=== PATIENT | female | born 1960 | race Caucasian/White ===

== ENCOUNTER 2025-08-24 07:01 | Day surgery (SDC) | payer OTHER, SELFPAY ==
--- OUTSIDE RECORDS SUMMARY | 2025-07-26 05:20 | XMS_ITS ---
Author Organization [facility] Address [address] [place] [address] Care Team Providers Care Application Administrator Name Role Phone Juan Burnett Primary Care Provider UnavailLeonardo Watts Jr Unavailable Allergies Allergen (clinical drug ingredient) Drug/Non Drug Allergy documented on EMR Reaction Allergy Type Onset Date Status rubbing alcohol (uncoded) Unknown Allergy Active REASON FOR VISIT Patient presents today for a screening colonoscopy Medications Medication SIG (Take, Route, Fr equency, Duration) Notes Start Date End Date Status Lovastatin 20 MG 1 tablet with the ev ening meal Orally Once a day; Duration: 30 day(s) 07/26/2025 Active Lisinopril 20 MG 1 tablet Orally Once a day; Duration: 30 day(s) 07/26/2025 Active Sertraline HCl 50 MG 1 tablet Orally Onc e a day; Duration: 30 day(s) 07/26/2025 Active Immunizations Vaccine Route Administration Date Status Comme nts Influenza Unknown 07/26/2025 Refused Social History Tobacco Use: Social History Observation Description Date Details (start date - stop date) Former Smoker NA - NA Tobacco Control (Standard) Question Answer Notes Tobacco use: Former smoker AUDIT-C (Standard) Question Answer Notes Did you have a drink containing alcohol in the p ast year? No Points 0 Interpretation Negative Vital Signs Temperature 96.9 degrees Fahrenheit 07/26/20 25 Blood pressure systolic 001 mm Hg 07/26/20 25 Blood pressure diastolic 01 mm Hg 025 Height 63 in 07/26/2025 Weight 153.4 lbs 07/26/2025 BMI 27.17 kg/m2 07/26/2025 Encounters Encounter Location Date Provider Diagnosis [facility] [address] [place] [address] 07/26/2025 Leonardo Lockhart Jr Encounter for screening for malignant neoplasm of colon Z12.11 and History of adenomatous polyp of colon Z86.0101 Assessments Encounter Date Diagnosis (ICD Code) Assessment Notes Treatment Notes Treatment Clinical Notes Section Notes 07/26/2025 Encounter for screening for malignant neoplasm of colon (ICD-10 - Z12.11) 07/26/2025 History of adenomatous polyp of colon (ICD-10 - Z86.0101) Plan Of Treatment Future Test Test Name Order Date COLONOSCOPY 07/26/2025 Next Appt Details Provider Name:Leonardo barnett Jr, 08/24/2025 08:20:00 AM, [address] [place] [address] , [place], [place], [id number], Progress Notes * REFUGIO MARTINIOB: 1 (64 yo F)Acc No.[id number]:07/26/2025 Progress Notes Patient: ERA WOLF Provider: Alfonzo Lockhart MD :1960 A ge:64 Y S ex:Female Date:07/26/2025 Address:[address] [place], [place] [id number] Pcp:CICI Kenny Subjective: * Chief Complaints: * 1 . Patient presents today for a screening colonoscopy. * Medical History: t ype II diabetes, High blood pressure. * Surgical History: g all bladder 1993, hysterectomy 2011. * Family History: F ather: , diagnosed with HTN (hypertension). M other: alive, diagnosed with HTN (hypertension). No family history of liver cancer or colon cancer. * Social History: T obacco Use: T obacco Control (Standard) T obacco use: F ormer smoker. M iscellaneous: M arital status: single. 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 D rug/Alcohol: A ROGERIO-C (Standard) D id you have a drink containing alcohol in the past year? N o,?Points 0 , I nterpretation N egative. * Medications: T aking Sertraline HCl 50 MG Tablet 1 tablet Orally Once a day , Taking Lisinopril 20 MG Tablet 1 tablet Orally Once a day , Taking Lovastatin 20 MG Tablet 1 tablet with the evening meal Orally Once a day * Allergies: R ubbing Alcohol. Objective: * Vitals: W t:153.4lbs, Ht:63in, BMI:27.17Index, BP:001/01mm Hg, Temp:96.9, Ht-cm: 160.02, Wt-k.58. Assessment: * Assessment: 1. E ncounter for screening for malignant neoplasm of colon - Z12.11 2 . H istory of adenomatous polyp of colon - Z86.0101 Plan: * Treatment: 2.?History of adenomatous polyp of colon?Procedure: COLONOSCOPY (Ordered for 07/26/2025)* sched for 08/24/25 at 8:20 a mmacmiralax * Immunizations: Influenza (Not administered - Refused: Patient decision) * Preventive Medicine: Counseling: C are goal follow-up plan: A tyshawn Normal BMI Follow-up D ietary management education, guidance, and counseling, B OR management provided Y es. * * The named appointment provid er may or may not be the originator of this progress note, and it is not deemed complete until electronically signed by the appointment provider. Sign off status: Pending * Provider: Alfonzo Lockhart MD Date: 0 07/26/2025 Generated for Mason toro/Shyam/Christinitting on: 1 07:04 PM EDT
--- OUTSIDE RECORDS SUMMARY | 2025-08-17 19:04 | XMS_ITS | Clinical Summary ---
Author Organization [facility] Address [address] [place] [address] Care Team Providers Care Dobby Loom Fixer Name Role Phone Juan Starr Primary Care Provider [phone] Allergies Active Allergy Reactions Criticality Noted Date Comments Amoxicillin Rash 01/23/2024 Doxycycline Indigestion,Rash 01/23/2024 Ethyl Alcohol Syncope High 03/19/2024 Rubbing alcohol only Meperidine Nausea 03/19/2024 Medications cyanocobalamin (VITAMIN B12) 100 mcg tablet Take by mouth. Active lisinopriL (PRINIVIL,ZESTRI L) 20 mg tablet SMARTSI Tablet(s) By Mouth Daily 4 Active L.acid,casei,niyah nt,saliv/B.ani (PROBIOTIC FORMULA ORAL) Take by mouth. 4 Active Vitamin D3 25 mcg (1,000 unit) capsule Take 1 capsule by mouth once a day. Active Ozempic 1 mg/dose (4 mg/3 mL) pen injector SMARTSI Milligram(s) SUB-Q Once a Week 4 Active hydrOXYzine HCL (ATARAX) 25 mg tablet Take 25 mg by mouth. 4 Active rosuvastatin (CRESTOR) 40 mg tablet Take 1 tablet by mouth. 4 Active sertraline (ZOLOFT) 50 mg tablet Take 50 mg by mouth. 4 Active oxyquinoline-sod .lauryl sulfat (Trimo-Blount Jelly) 0.025-0.01 % gelIndications:C ervical stump prolapse,Pessary maintenance Insert 1 applicator into the vagina 2 times a week. 113.4 g 5 Active Active Problems Problem Noted Date Diagnosed Date Diabetes mellitus with neuropathy 09/21/2024 Thyroid nodule 09/21/2024 Pessary maintenance 06/24/2024 Arthritis of hand 06/24/2024 Impetigo 06/24/2024 Impingement syndrome of shoulder region 06/24/20 Neurofibroma 06/24/2024 Xanthomatosis 06/24/2024 Carpal tunnel syndrome 03/19/2024 Diabetes mellitus 03/19/2024 Elevation of level of transa minase and lactic acid dehydrogenase (LDH) 03/19/2024 Fatty liver 03/19/2024 Hypertension 03/19/2024 Insomnia 03/19/2024 Tubular adenoma 03/19/2024 Xanthelasma 03/19/2024 Current every day smoker 01/23/2024 Overweight for height 01/23/2024 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 Cystocele, midline 01/23/2024 Hearing loss 06/27/2015 Chronic sinusitis 06/20/2015 Deviated nasal septum 06/20/2015 Temporary high blood pressure 03/15/2015 Pulmonary nodule 03/15/2015 Intercostal myalgia 11/26/2014 Menopausal symptoms 09/20/2014 Psoriatic arthropathy 09/20/2014 Basal cell carcinoma of skin 05/07/2014 Papillary pigmented nevus 05/03/2014 Seborrhea 04/12/2014 Skin macule 04/12/2014 Hyperlipidemia 04/12/2014 Seborrheic keratosis 04/12/2014 Candidal intertrigo 04/12/2014 Xanthoma 04/12/2014 Obesity (BMI 30.0-34.9) 04/12/2014 Tick bite 03/29/2014 Fatigue 02/26/2014 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 Headache 01/22/2014 Tinnitus 01/22/2014 Acute upper respiratory infection 04/21/2013 Allergic rhinitis 04/14/2013 Resolved Problems Problem Noted Date Diagnosed Date Resolved Date Current smoker 06/24/2024 06/24/2024 Effusion of knee 06/24/2024 06/24/2024 Epidermoid cyst of skin 06/24/2024 08/2 05/2024 Foreign body granuloma of muscle 06/24/2024 06/24/2024 Intertriginous candidiasis 06/24/2024 0 06/24/2024 Low back pain 06/24/2024 06/24/2024 Skin lesion 06/24/2024 06/24/2024 Axillary abscess 03/19/2024 03/19/2024 Bronchiectasis 03/19/2024 03/19/2024 Impingement syndrome of left shoulder 03/19/2024 03/19/2024 Immunizations Immunization Administration Dates Next Due Td(Adult) Unspecified Formulation 08/12/2017 Tetanus and Diphtheria Toxoi ds, Adsorbed, Preservative Free, for Adult Use (5 Lf of Tetanus Toxoid and 2 Lf of Diphtheria Toxoid) 02/25/2006 Family History Medical History Relation Name Comments Other Father Paternal histor y of Chronic Obstructive Pulmonary Disease Other Mother Maternal histor y of Hypothyroidism Breast cancer Neg Hx Cervical cancer Neg Hx Colon cancer Neg Hx Endometrial cancer Neg Hx Osteoporosis Neg Hx Ovarian cancer Neg Hx Relation Name Status Comments Father Mother Social History Tobacco Use Types Packs/Day Years Used Date Smoking Tobacco: Former Cigarettes Passive Smoke Exposure: Past Smokeless Tobacco: Never Tobacco Cessation:Counseling Given: Not Answered Alcohol Use Standard Drinks/Week Comments Yes 0 (1 standard drink = 0.6 oz pur e alcohol) rarely Comments No Sex and Gender Information Value Date Recorded Sex Assigned at Female 01/17/2024 4:04 PM EDT Legal Sex Female 12:10 AM EDT Gender Identity Female 12/23/2024 10:21 AM EST Sexual Orientation Straight 12/23/2024 10 :21 AM EST Last Filed Vital Signs Vital Sign Reading Time Taken Comments Blood Pressure 134/86 03/25/2025 9:29 AM EDT Pulse 88 09/21/2024 8:58 AM EST Temperature 37.4 C (99.3 F) 04/21/2015 10:19 AM EDT Respiratory Rate 16 12/24/2024 10:31 AM EST Oxygen Saturation - - Inhaled Oxygen Concentration - - Weight 68.9 kg (152 lb) 03/25/2025 9:29 AM EDT Height 160 cm (5' 3 ) 03/25/2025 9:29 AM EDT Body Mass Index 26.93 03/25/2025 9:29 AM EDT Plan of Treatment Health Maintenance Due Date Last Done Comments Basic Metabolic Panel 1960 Cologuard 1961 Colon Cancer Screening 1960 Colonoscopy 1960 FOBT / Fit Test 1960 HIV Screening 1960 Hemoglobin A1C 1961 Hepatitis C Screening 1961 Sigmoidoscopy 1961 Ophthalmology Exam 1971 Urine Microalbumin 1971 Pneumococcal Vaccine: 50+ Years (1 of 2 - PCV) 1980 CT Lung Cancer Screening (Baseline) 2011 Zoster Vaccines (1 of 2) 2011 Mammogram 11/11/2014 11/11/2012 DTaP,Tdap,and Td Vaccines (1 - Tdap) 08/13/2017 08/12/2017, 02/25/2006 Alcohol/Substance Use Screening 10/28/2024 Depression Screening and Follow-Up 10/28/2024 Social Drivers of Health Annual Screening 10/28/2024 COVID-19 Vaccine (1 - 2024-2 6 season) 2025 Influenza Vaccine (#1) 2025 RSV Vaccine (60+ years old a nd patients) (1 - 1-dose 75+ series) 2036 Hepatitis B Vaccines Aged Out No long er eligible based on patient's age to complete this topic Procedures * Due to [place] [employer] law, this organization might not be sharing negative HIV tests. Procedure Name Priority Date/Time Associated Diagnosis Comments MAMMOGRAPHY Routine 11/11/2012 8:16 AM EST from Last 3 Months or Most Recently Relevant to Health Maintenance Results * Due to [facility] law, this organization might not be sharing negative HIV tests. * MAMMOGRAPHY (11/11/2012 8:16 AM EST) Mammogram Negative [facility] Anatomical Region Laterality Modality Other 11/11/2012 8:16 AM EST Joe Haynes MD HEALTH MAINTENANCE Final Result from Last 3 Months or Most Recently Relevant to Health Maintenance [place] [address] [place] [address] HSNO/FREE CARE Care Teams Dobby Loom Fixer Relationship Specialty Start Date End Date Juan Starr PA [address] [place] [address] PCP - General 03/25/25
--- OUTSIDE RECORDS SUMMARY | 2025-08-17 19:05 | XMS_ITS | Clinical Summary ---
Author Organization [facility] Address [address] [place] [address] Care Team Providers Care Sorter Pricer Name Role Phone Unavailable Primary Care Provider Unavailabl e Social History Tobacco Use Types Packs/Day Years Used Date Smoking Tobacco: Never Assessed Comments Unknown Sex and Gender Information Value Date Recorded Sex Assigned at Not on file Legal Sex Female 6:40 PM EDT Gender Identity Not on file Sexual Orientation Not on file Plan of Treatment Health Maintenance Due Date Last Done Comments Hepatitis C Screening 1961 Pap Smear 1977 DTaP/Tdap/Td (1 - Tdap) 1979 Mammogram/Breast Imaging 2001 Pneumococcal 50+ years (1 of 1 - PCV) 2011 Zoster (Shingrix) (1 of 2) 2011 COVID-19 Vaccine ( - 2024-2 6 season) 2025 Influenza (#1) 2025 RSV (1 - 1-dose 75+ series) 2036 HPV Vaccine (No Doses Required) Completed Hep A Aged Out No longer eligi ble based on patient's age to complete this topic Hep B Aged Out No longer eligi ble based on patient's age to complete this topic Hib Aged Out No longer eligi ble based on patient's age to complete this topic Meningococcal ACWY Aged Out No longer eligible based on patient's age to complete this topic Zoster (Zostavax) Discontinued
--- OUTSIDE RECORDS SUMMARY | 2025-08-17 19:05 | XMS_ITS | Patient Health Record ---
Author Organization [facility] Address [address] [place] [address] Care Team Providers Care Marketing Traffic Manager Name Role Phone Juan Burnett Primary Care Provider UnavailLeonardo Watts Jr Unavailable Allergies Allergen (clinical drug ingredient) Drug/Non Drug Allergy documented on EMR Reaction Allergy Type Onset Date Status rubbing alcohol (uncoded) Unknown Allergy Active Reason For Referral No Information Medications Medication SIG (Take, Route, Fr equency, [...] Negative Vital Signs Temperature 96.9 degrees Fahrenheit 07/26/2025 Blood pressure diastolic 01 mm Hg 07/26/2025 Height 63 in 07/26/2025 Blood pressure systolic 001 mm Hg 07/26/2025 Weight 153.4 lbs 07/26/2025 BMI 27.17 kg/m2 07/26/2025 Encounters Encounter Location Date Provider Diagnosis [facility] [address] [place] [address] 07/26/2025 Leonardo Lockhart Jr Encounter for screening for malignant neoplasm of colon Z12.11 and History of adenomatous polyp of colon Z86.0101 [facility] [address] [place] [address] 08/17/2025 Leonardo Lockhart Jr Assessments Encounter Date Diagnosis (ICD Code) Assessment Notes Treatment Notes Treatment Clinical Notes Section Notes 07/26/2025 Encounter for screening for malignant neoplasm of colon (ICD-10 - Z12.11) 07/26/2025 History of adenomatous polyp of colon (ICD-10 - Z86.0101) Plan Of Treatment Future Test Test Name Order Date COLONOSCOPY 07/26/2025 Next Appt Details Provider Name:Leonardo barnett Jr, 08/24/2025 08:20:00 AM, [address] [place] [address] , [place], [place], [id number], Insurance Providers Payer Name Payer Address Payer Phone Subscriber Number Group Number Insured Name Patient Relationship to Insured Coverage Start Date Coverage End Date [facility] [address] [place] [address] [id number] ERA MARTINI Self - patient is the insured Medical (General) History Medical History History ICD Code type II diabetes high blood pressure Surgical History Surgery Date(Month/Year) hysterectomy 2011 gall bladder 1994
--- NOTE | 2025-08-23 08:55 | HO.ANESPROP2 ---
Documented by User: Yeny Langley NP 08/23/25 08:55 HPI - Anesthesia Eval Consult details Narrative: 64yo F for Colonoscopy Anesthesia Pre-Procedure Meds Is the patient on any of the following meds?: GLP1/DPP4 PMFSH Past Medical History Medical History Vaginal pessary present Gall bladder stones Elevated cholesterol HTN (hypertension) Surgical History Surgical History H/O: hysterectomy H/O colonoscopy Social History Social History Patient Tobacco Use Status: Never used Tobacco Tobacco use type: Smokeless Tobacco Have you been hit, kicked, punched, or otherwise hurt by someone within the past year? If so, by whom?: No Are you DNR?: No Advance Directives: No Advance Directives Information Provided: Yes Meds Allergies Allergy/AdvReac Type Severity Reaction Status Date / Time meperidine (From Demerol) Allergy Severe Unknown Verified 08/23/25 08:57 amoxicillin Allergy Unknown Unknown Verified 08/23/25 08:57 doxycycline Allergy Unknown Unknown Verified 08/23/25 08:57 rubbing alcohol Allergy Severe Dizziness Uncoded 08/24/25 07:30 Home Medications ?Medication ?Instructions ?Recorded ?Confirmed ?Last Taken ?Type lisinopril 20 mg tablet 20 mg PO DAILY 08/20/25 08/20/25 Unknown History rosuvastatin 40 mg tablet 40 mg PO DAILY 08/20/25 08/20/25 Unknown History semaglutide 2 mg/dose (8 mg/3 mL) 2 mg subcut QWEEK 08/20/25 08/20/25 08/13/25 History subcutaneous pen injector (Ozempic) sertraline 50 mg tablet 50 mg PO DAILY 08/20/25 08/20/25 Unknown History Assessment and Plan Assessment Anesthesia Assessment: Chart Reviewed Documented by User: Osmin Kaminski MD 08/24/25 09:47 PMFSH Past Medical History Medical History Vaginal pessary present Gall bladder stones Elevated cholesterol HTN (hypertension) Family History Family history of problems with anesthesia: No Surgical History Surgical History H/O: hysterectomy H/O colonoscopy History of Problems with Anesthesia: No Social History Social History Patient Tobacco Use Status: Never used Tobacco Tobacco use type: Smokeless Tobacco Have you been hit, kicked, punched, or otherwise hurt by someone within the past year? If so, by whom?: No Are you DNR?: No Advance Directives: No Advance Directives Information Provided: Yes Meds Allergies Allergy/AdvReac Type Severity Reaction Status Date / Time meperidine (From Demerol) Allergy Severe Unknown Verified 08/23/25 08:57 amoxicillin Allergy Unknown Unknown Verified 08/23/25 08:57 doxycycline Allergy Unknown Unknown Verified 08/23/25 08:57 rubbing alcohol Allergy Severe Dizziness Uncoded 08/24/25 07:30 Home Medications ?Medication ?Instructions ?Recorded ?Confirmed ?Last Taken ?Type lisinopril 20 mg tablet 20 mg PO DAILY 08/20/25 08/20/25 Unknown History rosuvastatin 40 mg tablet 40 mg PO DAILY 08/20/25 08/20/25 Unknown History semaglutide 2 mg/dose (8 mg/3 mL) 2 mg subcut QWEEK 08/20/25 08/20/25 08/13/25 History subcutaneous pen injector (Ozempic) sertraline 50 mg tablet 50 mg PO DAILY 08/20/25 08/20/25 Unknown History Exam Airway Mallampati Class: I TM Dist: >3cm Neck ROM: Full Loose/Missing/Broken Teeth: Yes Assessment and Plan Assessment Anesthesia Assessment: Anesthesia Plan Discussed Final Anesthetic Review Family History of Problems with Anesthesia: No History of Problems with Anesthesia: No NPO: Yes ASA Class: II Final Preanesthetic Review: No Changes in Pt Med Stat, Meds/Allgs Chart Reviewed, Consent Obtained/Reviewed and Anes Risks/Benef Reviewed Patient Risk: Low Procedure Risk: Low Anesthetic Plan Anesthetic Plan: MAC: Disposition: Standard PACU
[2025-08-24 05:19] VITALS: BMI 27.1
[2025-08-24 07:07] VITALS: BP 116/74; PULSE 95; RESP 16; TEMP 36.9; O2SAT 95; BMI 27.0
[2025-08-24] MEDS: Lactated Ringers 1,000 ML 100 ML IVCONT (07:27)
--- NOTE | 2025-08-24 07:42 | MHC.SHP ---
Pre-Procedural Eval Section A - 24 Hr Update-Section A only Date of Service: 08/24/25 Section B - Complete if H&P > 30 days Chief Complaint: screening Details of Present Illness: see H&P no changes Relevant Family History (Specify if Yes): No Relevant Social History: None Present Medications: see Short Stay Collaborative assessment Medical History: No relevant PMH Allergies: Allergies Allergy/AdvReac Type Severity Reaction Status Date / Time meperidine (From Demerol) Allergy Severe Unknown Verified 08/23/25 08:57 amoxicillin Allergy Unknown Unknown Verified 08/23/25 08:57 doxycycline Allergy Unknown Unknown Verified 08/23/25 08:57 rubbing alcohol Allergy Severe Dizziness Uncoded 08/24/25 07:30 Review of Systems Sugical H&P ROS: Negative: Constitution, Cardiovascular, Respiratory, Neurological, Psychiatric, Hem-Onc, Allergic/Immunologic, Gastrointestinal, Genitourinary, Musculoskeletal, Integumentary, Endocrine and Eyes/Ears/Nose/Throat Exam Surgical H&P Exam: Normal: HEENT, Normal: Heart, Normal: Lungs, Normal: Extremities, Normal: Abdomen, Normal: Skin and Normal: Neurological Plan Diagnosis/Plan: Unchanged I have reviewed the history and physical and performed a pertinent physical examination on my patient. No changes have occurred unless specified. Time Spent With Patient Time: Total time managing care of this patient today ____ minutes.
[2025-08-24 08:33] LABS: Glucose, Whole Blood 137 mg/dL (60-115)
[2025-08-24 09:10] VITALS: BP 108/65; PULSE 95; RESP 16; TEMP 36.5; O2SAT 93
[2025-08-24 09:25] VITALS: BP 102/57; PULSE 95; RESP 16; TEMP 36.3; O2SAT 96
--- NOTE | 2025-08-24 09:57 | OP_ITS ---
DATE OF SERVICE: 08/24/2025 SURGEON: Leonardo Lockhart MD INDICATIONS: Colon cancer screening. PREOPERATIVE DIAGNOSIS: POSTOPERATIVE DIAGNOSIS: PROCEDURE PERFORMED: Colonoscopy to the terminal ileum with biopsy. ESTIMATED BLOOD LOSS: COMPLICATIONS: ANESTHESIA: Monitored anesthesia care. ASSISTANTS: SPECIMENS: DESCRIPTION OF PROCEDURE: A history and physical was performed. The risks and benefits of the procedure were explained to the patient, and informed consent was obtained. The patient was placed in the left lateral decubitus position. A digital rectal exam was performed and was found to be normal. The Olympus pediatric video colonoscope was introduced into the rectum and advanced to the cecum. The cecum was identified by transillumination, palpation, and identification of ileocecal valve. Examination was performed. The scope was removed. She tolerated the procedure well and was returned to the recovery area in stable condition. FINDINGS: The terminal ileum was briefly examined and appeared normal. The visualized colonic mucosa was within normal limits. The quality of the prep was good. There was no residual polypoid tissue in the cecum at the site of the previous polypectomy, a total of 2 polyps were identified. These were located at 60 cm and 65 cm, both were less than 5 mm and removed with a biopsy forceps and cold snare. No other polyps were identified. There was mild sigmoid diverticulosis. Retroflexed examination was normal. IMPRESSION: Colon polyps. RECOMMENDATION: Follow up the biopsy results. MD ASHELY Lemons/HERIBERTO / [id number]
== END 2025-08-24 09:49 | disposition home or self-care (01) ==
PROVIDERS: PCP Student in an Organized Health Care Education/Training Program; Visit Provider Internal Medicine Gastroenterology
PROC: 0DJD8ZZ Inspection of Lower Intestinal Tract, Via Natural or Artificial Opening Endoscopic (ICD-10-PCS; CPT 45378; principal; 2025-08-24 08:20)
DX: Z12.11 Encounter for screening for malignant neoplasm of colon (principal); Z86.0101 Personal history of adenomatous and serrated colon polyps; D12.4 Benign neoplasm of descending colon; K57.30 Diverticulosis of large intestine without perforation or abscess without bleeding; I10 Essential (primary) hypertension; E11.9 Type 2 diabetes mellitus without complications; Z79.899 Other long term (current) drug therapy; Z88.8 Allergy status to other drugs, medicaments and biological substances; Z90.49 Acquired absence of other specified parts of digestive tract; Z87.891 Personal history of nicotine dependence
CPT/HCPCS: 45385; 45380; 82947; 88305; J2704